=== PATIENT | female | born 1995 | race Caucasian/White ===

== ENCOUNTER 2016-07-28 12:46 | Emergency (ER) | payer OTHER ==
[~2016-07-28] VITALS: Wt 90.0 kg
--- NOTE | 2016-07-28 13:21 | ERD ---
ER Documentation Chief Complaint Date/Time DATE: 07/28/16 TIME: 13:16 Chief Complaint SORE THROAT FOR THE PAST FEW DAYS. NOT BETTER WITH MEDS NO SOB HPI 21-year-old female presents to the emergency room for sore throat for a few days. Stated that she was at [place] emergency department yesterday was given "steroid shot and prednisone 20mg to go home, and hydroxyzine." She has taken prednisone and still has prednisone pills for 2 days. Stated that the swelling to her left neck as decreased with the right neck mildly decreased but still swollen. She is mild difficulty swallowing. Tolerating secretions. Patent airway. Denies headache, loss of consciousness, dizziness, blurry vision, changes in vision, photophobia, facial pain, ear pain, shoulder pain, chest pain, cough, hemoptysis, abdominal pain, back pain, loss of appetite, nausea, vomiting, hematochezia, diarrhea, constipation, urinary symptoms, , the possibility of being , bladder and bowel incontinences, extremity weakness, extremity tenderness, numbness or tingling sensation, difficulty walking, recent travel, recent exposure to illness, recent antibiotic use in the last 3 months, fever, chills. Allergy: No known drug allergies. PMH: Denies. Family medical history: Denies. AO LMP: 07/15/2016 Medications: Hydroxyzine. Prednisone. Surgery: Denies. 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 Denies smoking, use of alcohol, use of illegal drugs. ROS All systems reviewed and are negative except as per history of present illness. Medications Home Meds Active Scripts Amoxicillin* (Amoxicillin*) 500 Mg Cap, 500 MG PO TID for 7 Days, CAP Prov:PASILABAN,KLAR F 07/28/16 Prednisone* (Prednisone*) 20 Mg Tab, 40 MG PO DAILY for 4 Days, TAB Prov:PASILABAN,KLAR F 07/28/16 PMhx/Soc Medical and Surgical Hx: pt denies Medical Hx, pt denies Surgical Hx Hx Alcohol Use: No Hx Substance Use: No Hx Tobacco Use: No Smoking Status: Never smoker Physical Exam Vitals Vital Signs Date Time Temp Pulse Resp B/P Pulse Ox O2 Delivery O2 Flow Rate FiO2 07/28/16 12:53 98.1 110 21 142/71 98 Physical Exam CONSTITUTIONAL: Well-appearing; well-nourished; in no apparent distress. HEAD: Normocephalic; atraumatic. EYES: Conjunctiva clear, sclera non-icteric, EOM intact. PERRL. No pain on eye movement. Ears: Hearing intact. EACs clear, TMs non-bulging, non-inflamed, translucent & mobile, ossicles normal appearance, No obstructions, no erythema, no discharges Nose: No obstructions. No polyps. No external lesions. Mucosa non-inflamed. No external lesions, septum and turbinates normal. No rhinorrhea. No discharges. Frontal sinus is non-tender to palpation. Maxillary sinus is non-tender to palpation. MOUTH: Moist mucous membranes, no lesion, no obstructions, no vesicles, no thrush, patent airway Throat: Uvula in midline and non-displaced. Right tonsil is +2 with no erythema , no exudate. Left tonsil is +2 with no erythema, no exudate. Tolerating secretions well. Good gag reflex. Patent airway. Speaks full and clear sentences. Neck: Supple, without lesions, bruits, or adenopathy. No mass. Thyroid non- enlarged and non-tender to palpation. Good and full range of motion of neck without discomfort and pain. Right neck lymph node is swollen (patient stated that it has decreased since yesterday but it is more swollen than the left). Left neck lymph node is swollen (lesser than the right). No nuchal rigidity. CHEST: Symmetrical chest. Respirations even and not labored. No retractions noted. CARDIOVASCULAR: Normal S1, S2. RRR. No murmurs, gallops. RESPIRATORY: Normal chest excursion with respiration; breath sounds clear and equal bilaterally; no wheezes, rhonchi, or rales. Breathing even and unlabored. Speaking in clear, full, and complete sentences w/ ease. ABDOMEN: Normal bowel sounds normal. Soft, round, non-distended, non-guarding, no tenderness, no rebound, no organomegaly, no masses, no pulsating abdominal mass. No hernia. No peritoneal signs. : No CVA tenderness. BACK: Symmetrical shoulder. Spine is midline without deformity, tenderness. No evidence of trauma or deformity. PELVIS: Stable pelvis. No evidence of trauma or deformity. MUSCULOSKELETAL: Normal gait and station. No misalignment, asymmetry, crepitation, defects, tenderness, masses, effusions, decreased range of motion, instability, atrophy or abnormal strength or tone in the head, neck, spine, ribs , pelvis or extremities. No calf tenderness. NEUROVASCULAR: Distal pulses are present. Pedal pulse are present, equal, and normal. Capillary refills are < 2 seconds. NEUROLOGIC: Alert and oriented x4. Speaks full and clear sentences. Cranial Nerves II-XII normal. Sensation to pain, touch, and proprioception normal. Grossly unremarkable. No neurologic deficits. Romberg test is negative. PSYCHOLOGICAL: The patients mood and manner are appropriate. No hallucinations , delusions. Not SI. Not HI. Has the capacity to decide for self SKIN: Normal for age and ethnicity; warm; dry; good turgor; no apparent lesions or exudates. No rashes, hives, discoloration. Intact. Procedures/MDM Examination: Please see physical examination. Disease process, medical treatment was explained to the patient and family member. They verbalized understanding and agreed with the diagnostic tests, medical treatment, and follow-up care. Radiology: Neck ultrasound. Impression: Bilateral cervical lymph nodes presumably in the jugulodigastric chain and submandibular regions are most consistent with lymphadenitis. Should the patient not respond to conservative clinical measures, follow-up cross- sectional study such as CT or MRI is suggested. Heterogenous appearance of the visualized thyroid gland possibly the sequela of thyroiditis. Re-evaluation: Patient is alert and oriented 4. Denies headache, dizziness, neck pain, throat pain, throat tightness, difficulty swallowing, chest pain, back pain, abdominal pain. No nausea and vomiting. Uvula is in midline not displaced. Tonsils are +2 bilaterally. No exudates. Tolerating secretions. Able to tolerate fluids. Patent airway. Speaks full and clear sentences. Respirations even and unlabored. Lung sounds are clear to auscultation. Consultation: None. Differential diagnosis: Peritonsillar abscess versus mass versus strep throat versus TMJ versus TMJ disease versus lymphadenitis Medical decision makin-year-old female presents to the emergency room for sore throat for a few days. Stated that she was at [place] emergency department yesterday was given "steroid shot and prednisone 20mg to go home, and hydroxyzine." She has taken prednisone and still has prednisone pills for 2 days. Stated that the swelling to her left neck as decreased with the right neck mildly decreased but still swollen. She is mild difficulty swallowing. Tolerating secretions. Patent airway. Patient's complaint, patient's history about her complaint, my diagnostic test results, my physical findings, my reevaluation are consistent with my final diagnosis of lymphadenitis and thyroiditis. Ultrasound result was discussed with the patient. Patient and her significant other verbalized understanding. I also stressed with them the importance of following up with her primary care provider. Verbalized understanding and agreed with follow-up care. Case was discussed with supervising emergency room physician, Dr. Yousif Herrera, who agreed in my medical decision making. Medications prescribed are the following: Patient's prednisone 20 mg for 2 more days was changed to 40 mg daily for 4 days. Amoxicillin by mouth was also prescribed. Patient and family member are made aware of the side effects and adverse reactions of the medications prescribed. Instructed on when to seek emergent and medical attention in case allergic/anaphylactic reactions or severe side effects and or adverse reactions to medications. Patient and family member verbalized understanding. Patient instructed Instructed to follow-up with his PCP in 24-48 hours. Stated that she will make sure to follow-up with her PCP in the next 24-48 hours. Instructed to Call 911 for chest pain, shortness of breath. Advised to come back here in ED as soon as possible for severity of symptoms which includes but not limited to: any new symptoms; shortness of breath/difficulty of breathing; cardiovascular changes; severe gastrointestinal symptoms; signs and symptoms of bleeding and or infection; signs of compartment syndrome/neurovascular changes; neurological changes/deficits. Patient and family member verbalized understanding. Upon discharge, patient is alert and oriented x 4, speaks full and clear sentences, denies pain, has no neurological deficits, has no neurovascular deficits, difficulty of breathing. There is no pain on eye movement. Extraocular movement of her eyes is intact/within normal limits. Breathing even and unlabored. Uvula is in midline and non-displaced. Tolerating secretions. No difficulty swallowing. Denies throat tightness. Able to tolerate liquids by mouth. Good and full range of motion of her neck without pain/discomfort/tenderness. There is no nuchal rigidity. Respirations even and unlabored. Lung sounds are clear to auscultation. Not in distress. Appears comfortable. Ambulatory with steady gait. Appears satisfied with care provided here in ED. Departure Diagnosis: Primary Impression: Lymphadenitis Additional Impression: Thyroiditis Condition: Good Additional Instructions: Patient instructed Instructed to follow-up with his PCP in 24-48 hours. Stated she will follow-up with her primary care physician the next 24-48 hours. Instructed to Call 911 for chest pain, shortness of breath. Advised to come back here in ED as soon as possible for severity of symptoms which includes but not limited to: any new symptoms; shortness of breath/difficulty of breathing; cardiovascular changes; severe gastrointestinal symptoms; signs and symptoms of bleeding and or infection; signs of compartment syndrome/neurovascular changes; neurological changes/deficits. Patient and family member verbalized understanding. SOLO WELLS Jul 28, 2016 13:20
--- NOTE | 2016-07-28 16:09 | RADRPT ---
PROCEDURE: Ultrasound neck soft tissues, nonvascular CLINICAL INDICATION: New onset diffuse neck swelling TECHNIQUE: With time sonographic imaging of the neck is performed, including a cursory examination of the thyroid gland, with static zelaya scale and Doppler images submitted to the PACS for revi ew. COMPARISON: None available FINDINGS: Right neck: Ovoid reniform shaped peripherally hypoechoic and centrally hyperechoic foci are consis tent with lymph nodes, 1 in the right neck, presumably the jugulodigastric chain, measures 1.5 x 0.7 cm. The submandibular labeled lymph node measures 1.6 x 1 cm. Left neck: Similar lymph node measures 1.6 x 0.9 cm. Thyroid gland: Heterogeneous echotexture is present without gross evidence of thyroid mass or nodul e. RPTAT:HJJR IMPRESSION: 1. Bilateral cervical lymph nodes presumably in the jugulodigastric chain and submandibular regions are most consistent with lymphadenitis. Should the patient not respond to conservative clinical veronique sures, a follow-up cross-sectional study such as CT or MRI is suggested. 2. Heterogeneous appearance to the visualized thyroid gland possibly the sequela of thyroiditis. Physician Doc Date Time Electronically viewed and signed by Physician Doc on 07/28/2016 16:09 /
[2016-07-28] MEDS ORDERED: PRED20TA PO (16:30)
[2016-07-28] MEDS ORDERED: AMO500 PO (16:30)
[2016-07-28 16:55] VITALS: BP 132/71; PULSE 89; RESP 20; TEMP 98.3
== END 2016-07-28 17:03 | disposition home or self-care (01) ==
LOC: FTE 12:46
DX: I88.9 Nonspecific lymphadenitis, unspecified (principal); E06.9 Thyroiditis, unspecified
CPT/HCPCS: 76536; Z7502